=== PATIENT | female | born 1950 | race Caucasian/White ===

== ENCOUNTER 2018-03-11 08:22 | Day surgery (SDC) | payer OTHER ==
[~2018-03-11 08:22] MED LIST: COZAAR PO; EVISTA60 MG; EVISTA60 MG PO; SYNTHROID112 MCG PO; VIT D PO; ZOCOR PO
[2018-03-11] MEDS ORDERED: ZITHROMAX500 MG PO (12:39)
[2018-03-11] MEDS ORDERED: DICLOFENAC POTA50 MG PO (12:39)
== END 2018-03-11 16:49 | disposition home or self-care (01) ==
LOC: CIR.AMB 08:22
DX: N84.0 Polyp of corpus uteri (principal)